=== PATIENT | female | born 1940 | race Caucasian/White ===

== ENCOUNTER 2016-07-08 12:21 | Emergency (ER) | payer OTHER ==
[~2016-07-08 12:21] MED LIST: ADVIL PO; ASA5GR PO; ASABAYER PO; ATIVAN2 MG PO; ATV1 PO; CRESTOR20 MG PO; GLUCOPHAGE1000 MG PO; GLUCOSAMINE CHONDROI PO; GLUCPH8 PO; K-TABS10 MEQ PO; L40 PO; LOP25 PO; LORTAB 5 PO; MIRAPEX1 MG PO; MIRAPEX125 PO; MOBIC15 MG PO; NEXIUM20 M1 PO; NORCO1 TA1 PO; P125 PO; PLEND5 PO; SUPER B COMP PO; VITAMIN B COMPLEX PO; [UNRECOGNIZED DRUG - OTHER] PO
[2016-07-08 13:14] LABS: BASOPHILS ABSOLUTE 0.06 10/3/uL (0.0-0.16); EOSINOPHILS ABSOLUTE 0.31 10/3/uL (0.0-0.53); ER CBC TAT 0 Hrs 05 Mins; HEMATOCRIT 34.7 % (36.0-48.0); HEMOGLOBIN 11.1 g/dL (12.0-16.0); IMMATURE GRANULOCYTES 0.2 %; IMMATURE GRANULOCYTES ABSOLUTE 0.01 10/3/uL (0.0-0.11); LYMPHOCYTES ABSOLUTE 1.24 10/3/uL (0.67-4.30); MEAN CORPUSCULAR HEMOGLOB 26.6 pg (26.0-34.0); MEAN CORPUSCULAR VOLUME 83.2 fL (80-100); MEAN PLATELET VOLUME 9.8 fL (9.2-13.0); MONOCYTES 9.5 %; MONOCYTES ABSOLUTE 0.59 10/3/uL (0.21-1.20); NEUTROPHILS 64.3 %; NEUTROPHILS ABSOLUTE 3.99 10/3/uL (2.02-8.40); PLATELET COUNT 261 10/3/uL (150-400); RBC DISTRIBUTION WIDTH 15.7 % (12.0-16.0); RED CELL COUNT 4.17 10/6/uL (4.0-5.6); WHITE BLOOD CELLS 6.2 10/3/uL (4.5-10.5)
[2016-07-08 13:15] LABS: MANUAL DIFF NO %
[2016-07-08 13:33] LABS: A/G RATIO 0.9 (0.7-1.9); ALBUMIN 3.4 G/DL (3.5-5.0); ALKALINE PHOSPHATASE 79 U/L (45-117); BUN (BLOOD UREA NITROGEN) 18 MG/DL (6-23); CALCIUM, SERUM 8.9 MG/DL (8.5-10.4); CHLORIDE, SERUM 101 MMOL/L (96-112); CO2 (CARBON DIOXIDE) 26 MMOL/L (24-34); CREATININE 1.06 MG/DL (0.55-1.02); GFR AFRICAN AMERICAN 60 ML/MIN (>=60); GFR NON AFRICAN AMERICAN 52 ML/MIN (>=60); GLOBULIN 3.7 G/DL (2.5-4.1); GLUCOSE, SERUM 201 MG/DL (60-99); POTASSIUM, SERUM 4.6 MMOL/L (3.5-5.3); SGOT(AST) 20 U/L (5-40); SGPT(ALT) 29 U/L (5-65); SODIUM, SERUM 134 MMOL/L (135-148); TOTAL BILIRUBIN 0.2 MG/DL (0-1.2); TOTAL PROTEIN 7.1 G/DL (6.0-8.5); TROPONIN I <0.02 NG/ML (<0.05)
[2016-07-08 14:05] LABS: ASCORBIC ACID (UR NOT ORDER) NEG (NEG); BILIRUBIN, URINE SMALL (NEG); ER URINALYSIS TAT 0 Hrs 15 Mins; KETONE, URINE NEGATIVE (NEG); LEUKOCYTE ESTERASE(NOT OR SMALL (NEG); NITRITE (URINE) NEG (NEG); WBC (NOT ORDERED) (RFLEX) 3 (0-5)
[2016-09-30] MEDS ORDERED: CRESTOR20 MG PO (05:50)
[2016-09-30] MEDS ORDERED: ASABAYER PO (05:51)
[2016-09-30] MEDS ORDERED: VITAMIN B PO (05:51)
[2016-09-30] MEDS ORDERED: PRILO PO (05:52)
[2016-09-30] MEDS ORDERED: MIRAPEX5 PO (05:52)
[2016-09-30] MEDS ORDERED: MOBIC15 MG PO (05:52)
[2016-09-30] MEDS ORDERED: LOP25 PO (05:53)
[2016-09-30] MEDS ORDERED: INVOKANA100 MG PO (05:54)
[2016-09-30] MEDS ORDERED: REQUIP5 MG PO (05:55)
[2016-09-30] MEDS ORDERED: NORCO1 TA2 PO (05:55)
[2016-10-02] MEDS ORDERED: DSS PO (16:23)
[2016-10-02] MEDS ORDERED: LOP25 PO (16:25)
[2016-10-02] MEDS ORDERED: PROAIRRESP INH (18:55)
[2016-10-02] MEDS ORDERED: TESSALON200 MG PO (18:56)
[2016-10-02] MEDS ORDERED: MUCINEX600 MG PO (18:57)
[2016-10-02] MEDS ORDERED: KDUR20 PO (18:58)
[2016-10-02] MEDS ORDERED: DEMA20 PO (18:58)
== END 2016-07-08 16:11 | disposition home or self-care (01) ==
LOC: ER 12:21
PROVIDERS: Physician Assistant
DX: G47.09 Other insomnia (principal); E11.9 Type 2 diabetes mellitus without complications; Z86.73 Personal history of transient ischemic attack (TIA), and cerebral infarction without residual deficits; Z95.1 Presence of aortocoronary bypass graft; Z88.0 Allergy status to penicillin; Z88.5 Allergy status to narcotic agent; Z88.8 Allergy status to other drugs, medicaments and biological substances; Z91.09 Other allergy status, other than to drugs and biological substances; Z79.82 Long term (current) use of aspirin; Z79.899 Other long term (current) drug therapy
CPT/HCPCS: 70450; 71010; 80053; 81001; 84484; 85025; 87086; 93005; 99285